=== PATIENT | male | born 1940 | race Caucasian/White ===

== ENCOUNTER → 2021-10-28 12:44 | Outpatient (BNVA) | payer MEDICARE, SELFPAY | PROVIDERS: Visit Provider Surgery | DX: R13.10 Dysphagia, unspecified (principal); K21.9 Gastro-esophageal reflux disease without esophagitis | CPT/HCPCS: 99203; 99242 ==

== ENCOUNTER → 2021-11-29 11:16 | Outpatient (BNVA) | payer MEDICARE, SELFPAY | PROVIDERS: Visit Provider Surgery | DX: K21.9 Gastro-esophageal reflux disease without esophagitis (principal) | CPT/HCPCS: 99212 ==

== ENCOUNTER 2023-11-02 10:08 | Emergency (ER) | payer MEDICARE, SELFPAY ==
[2023-11-02 10:10] VITALS: BP 194/91; PULSE 89; RESP 12; TEMP 36.8; O2SAT 97
--- NOTE | 2023-11-02 10:25 | ED.GENADUL_ITS ---
Discharge Plan Disposition Patient Disposition: Home Discharge Details Clinical Impression: Cellulitis of flank Primary Care Provider: Josee,Local ED Provider: Pasquale Peterson Home Meds and New Rx's Prescriptions: New cefuroxime axetil 500 mg tablet 500 mg PO BID Qty: 14 0RF Continued levothyroxine 137 mcg capsule 137 mcg PO DAILY lisinopril-hydrochlorothiazide 20-12.5 mg tablet 1 tab PO DAILY Gaviscon Extra Strength 160-105 mg tablet,chewable 2 tab PO BID sucralfate [Carafate] 1 gram tablet 1 g PO QACHS PRN (Reason: prn heartburn) Qty: 120 12RF esomeprazole magnesium 40 mg capsule,delayed release(DR/EC) See Rx Instructions .ROUTE .COMPLEX Qty: 30 7RF Dose Instruction: TAKE 1 CAPSULE BY MOUTH DAILY Rx Instructions: TAKE 1 CAPSULE BY MOUTH DAILY Discharge Instructions Instructions: Cellulitis (Skin Infection), Adult ED Additional Instructions: You are seen in the emergency department for your skin infection for which you are receiving antibiotics that you should take as directed. Please return to the emergency department if you develop fevers become nauseous or develop vomiting or shortness of breath. Otherwise please follow-up with your primary care provider next week. HPI General Date/Time Provider Initiated Documentation: 11/02/23 10:24 . HPI Narrative: MDM This is a quite well-appearing normothermic and not tachycardic 83-year-old male with recent tick bite and mild surrounding erythema most consistent with early cellulitis for which patient will receive antibiotics. Will treat with cefuroxime in the event that there is a component of early Lyme disease however the patient has no signs of erythema migrans at the moment. Given that my suspicion for cellulitis is higher than my suspicion for Lyme I felt that the patient required better strep coverage so I elected for the cephalosporin rather than doxycycline. No shortness of breath or chest pain to suggest Lyme carditis. No pain out of proportion to suggest necrotizing soft tissue infection. No fluctuance to suggest abscess. No recent new medications or fevers so my suspicion for DRESS is low. No bullae to suggest Mckeon-Young's nor TEN. Patient is nontoxic-appearing so I an not concerned for pemphigus vulgaris nor bullous pemphigoid. Patient is tolerating p.o.'s no indication for IV antibiotics. Soft nontender abdomen so I am not concerned for intra- abdominal infection. No Milan King sign or Abhishek sign so doubt ruptured AAA. Of note patient was hypertensive in the emergency department. He is on outpatient antihypertensives. I advised primary care follow-up for blood pressure check. Patient received his first dose of antibiotics in the emergency department. He denies headache decreased urine output and any chest pain so no indication for lab work. I advise ED return for any worsening rash fevers or inability to tolerate p.o. He understood his return indications and was discharged with empiric trial of expectant outpatient management. HPI This is an 83-year-old male arrived to the emergency department via private vehicle with his in the setting of a tick bite. Patient notes that he was bit by a tick 6 days ago. He removed the tick 5 days ago. He reports that when he removed the tick it was not engorged. He believes that the tick was on him for approximately 24 hours. Last night he began having some itching and noticed some redness around the site at which he removed the tick. He denies fevers nausea vomiting chest pain abdominal pain and shortness of breath. Exam General: Well-appearing in no acute distress speaking in complete sentences. Head: Normocephalic, atraumatic. Eye: Extraocular eye movements intact. No conjunctival injection. No scleral icterus. Ear, nose, mouth, throat: Grossly normal inspection. Normal voice, handling secretions normally. Neck: Trachea midline. Cardiovascular: Well-perfused distal extremities. Respiratory: Nonlabored respiration. Gastrointestinal: Nondistended abdomen. Soft nontender. No Milan King sign. No Abhishek sign. Musculoskeletal: No edema. Moving all 4 extremities spontaneously. Skin: On the patient's right flank and there is a small approximately 2 cm in diameter erythematous area with central black discoloration consistent with history of recent tick bite. There is no surrounding signs of erythema migrans. No fluctuance. No bullae. Neurologic: Alert and appropriate, no apparent acute deficits. Psychiatric: Mood and manner are appropriate. Grooming and personal hygiene are appropriate. Related Data Home Medications ?Medication ?Instructions ?Recorded ?Confirmed aluminum hydrox-magnesium carb 160 2 tab PO BID 10/28/21 11/02/23 mg-105 mg chewable tablet (Gaviscon Extra Strength) levothyroxine 137 mcg capsule 137 mcg PO DAILY 10/28/21 11/02/23 lisinopril 20 1 tab PO DAILY 10/28/21 11/02/23 mg-hydrochlorothiazide 12.5 mg tablet sucralfate 1 gram tablet (Carafate) 1 g PO QACHS PRN prn heartburn 10/28/21 11/02/23 #120 tabs esomeprazole magnesium 40 mg See Rx Instructions .Route 09/11/22 11/02/23 capsule,delayed release .COMPLEX #30 caps cefuroxime axetil 500 mg tablet 500 mg PO BID #14 tabs 11/02/23 Previous Rx's ?Medication ?Instructions ?Recorded sucralfate 1 gram tablet (Carafate) 1 g PO QACHS PRN prn heartburn 10/28/21 #120 tabs esomeprazole magnesium 40 mg See Rx Instructions .Route 09/11/22 capsule,delayed release .COMPLEX #30 caps cefuroxime axetil 500 mg tablet 500 mg PO BID #14 tabs 11/02/23 Allergies Allergy/AdvReac Type Severity Reaction Status Date / Time codeine Allergy Intermediate Diarrhea Verified 11/02/23 10:14 Penicillins Allergy Intermediate Diarrhea Verified 11/02/23 10:14 General Stated Complaint: RashLesion SHIRIN: 5 Course Vital Signs Vital signs: Vital Signs Temperature 36.8 C 11/02/23 10:10 Pulse 89 11/02/23 10:10 Respiratory Rate 12 11/02/23 10:10 Blood Pressure 194/91 H 11/02/23 10:10 Pulse Oximetry 97 11/02/23 10:10 Temperature 36.8 C 11/02/23 10:10 Temperature Source Temporal Artery Scan 11/02/23 10:10 Pulse 89 11/02/23 10:10 Respiratory Rate 12 11/02/23 10:10 Respiratory Effort Normal, Non-Labored 11/02/23 10:17 Blood Pressure 194/91 H 11/02/23 10:10 Blood Pressure Position Sitting 11/02/23 10:10 Pulse Oximetry 97 11/02/23 10:10 Oxygen Delivery Method Room Air 11/02/23 10:10 Oxygen Flow Rate 0 11/02/23 10:10 Pain Level 0 11/02/23 10:10 Medical Decision Making Quality:SDOH Health Related Social Needs: No Data to Display PFSH All Active Problems (Updated 11/02/23 @ 10:25 by Pasquale Peterson MD) Cellulitis of flank (Acute) Chronic GERD (Acute) Aortic aneurysm (Chronic) 4.7cm Hypertension (Chronic) COPD (chronic obstructive pulmonary disease) (Chronic) Dysphagia (Acute) Medical History (Updated 11/02/23 @ 10:25 by Pasquale Peterson MD) Bladder tumor Diverticulitis Surgical History (Updated 10/28/21 @ 13:01 by María Elena Jamison RN) H/O prostatectomy History of colon resection H/O cervical spine surgery H/O hemorrhoidectomy Hx of appendectomy H/O esophagogastroduodenoscopy Social History Smoking risk assessment performed?: No Housing: house
[2023-11-02] MEDS: Cefuroxime 500 MG TAB PO (10:53)
== END 2023-11-02 10:47 | disposition home or self-care (01) ==
PROVIDERS: Emergency Provider Emergency Medicine
DX: L03.115 Cellulitis of right lower limb (principal); I10 Essential (primary) hypertension; J44.9 Chronic obstructive pulmonary disease, unspecified
CPT/HCPCS: 99283